=== PATIENT | male | born 1965 | race Caucasian/White ===

== ENCOUNTER → 2022-02-14 14:25 | Outpatient (CLI) | payer OTHER, SELFPAY ==
--- NOTE | ~2022-02-14 | US_ITS ---
EXAMINATION: US carotid duplex BI DATE: 02/14/2022 14:47 INDICATION: CVA TECHNIQUE: Grayscale, color Doppler, and pulsed Doppler images of the cervical carotid arteries were obtained. The degree of vessel stenosis is placed in one of the following categories: normal, <50%, 5 0-69%, >=70% but less than near-occlusion, near-occlusion, or total occlusion. Note that percent sten osis relative to normal distal artery lumen diameter is indirectly measured from velocity measurement s as described by Hamilton, et al. Radiology 2003; 229:340-346. Notes: Normal: Peak systolic velocity <125 centimeters/sec and no plaque <50%. Peak systolic velocity <125 ( EDV <40; ICA/CCA PSV ratio <2.0; used these factors only a tandem lesions or low cardiac output or co ntralateral disease) 50-69 %: PSV 125-230 (EDV 40-100; ratio 2-4) >= 70% but less than near occlusion: PSV greater than 230 (EDV > 100; ratio> 4.0) Near Occlusion: PSV that is variable; markedly narrowed lumen Occlusion: Absent flow on color/spectral Doppler and no lumen on yousif scale. COMPARISON: None. FINDINGS: RIGHT: The right common carotid artery (CCA) peak systolic velocity (PSV) is 108 cm/s. The right internal ca rotid artery (ICA) PSV is 47 cm/s. The right ICA end-diastolic velocity (EDV) is 7 cm/s. The right IC A/CCA PSV ratio is 0.5. The external carotid artery (ECA) PSV is 194 cm/s. There is antegrade flow in the right vertebral artery. LEFT: The left CCA PSV is 151 cm/s. The left ICA PSV is 100 cm/s. The left ICA EDV is 49 cm/s. The left ICA /CCA PSV ratio is 0.8. The ECA PSV is 123 cm/s. There is antegrade flow in the left vertebral artery . IMPRESSION: 1. Less than 50% stenosis in the right internal carotid artery by sonographic criteria. 2. Less than 50% stenosis in the left internal carotid artery by sonographic criteria. Reviewed, dictated and finalized at location B. IMPRESSION: 1. Less than 50% stenosis in the right internal carotid artery by sonographic juventino mcfarland. 2. Less than 50% stenosis in the left internal carotid artery by sonographic geraldine wan.
== END ==
PROVIDERS: PCP Family Medicine Adolescent Medicine; Visit Provider Family Medicine Adolescent Medicine
DX: H53.462 Homonymous bilateral field defects, left side (principal); I65.23 Occlusion and stenosis of bilateral carotid arteries
CPT/HCPCS: 93880

== ENCOUNTER 2023-09-02 14:45 | Outpatient (CLI) | payer OTHER, SELFPAY ==
--- NOTE | ~2023-09-02 | MR_ITS ---
EXAMINATION: MR lumbar spine wo con DATE: 09/02/2023 15:19 INDICATION: Low back pain. Left hip and leg pain. TECHNIQUE: Magnetic resonance imaging (MRI) of the lumbar spine was performed without intravenous con trast. Sequences included sagittal T2-weighted FSE, sagittal T2-weighted FS FSE, sagittal T1-weighted FSE, and axial T2-weighted FSE. COMPARISON: None FINDINGS: There is 5 degrees levocurvature of lumbar spine. There is mild chronic height loss of T11- L2 vertebral bodies. There is 3 mm retrolisthesis of L2 on L3. There is severely decreased disc heigh t at T10-T11, moderately decreased disc height at T11-T12, severely decreased disc height at T12-L1, L1-L2, and L2-L3, moderately decreased disc height at L3-L4 and L4-L5, and severely decreased disc he ight at L5-S1. The distal spinal cord signal intensity is normal. The conus medullaris is at L1-L2. T he following disc levels are specifically discussed: L1-L2: The disc is bulging. There is mild bilateral facet joint osteoarthritis. There is mild bilater al neural foraminal stenosis. There is mild central canal stenosis. L2-L3: The disc is bulging. There is mild bilateral facet joint osteoarthritis. There is moderate rig ht and mild left neural foraminal stenosis. There is mild central canal stenosis. L3-L4: The disc is bulging and has an annular fissure. There is moderate bilateral facet joint osteoa rthritis. There is moderate bilateral neural foraminal stenosis. There is mild central canal stenosis . L4-L5: The disc is bulging and has an annular fissure. There is severe bilateral facet joint osteoart hritis. There is moderate bilateral neural foraminal stenosis. There is mild central canal stenosis. L5-S1: The disc is bulging and has an annular fissure. There is severe bilateral facet joint osteoart hritis. There is moderate bilateral neural foraminal stenosis. There is mild central canal stenosis. IMPRESSION: 1. Severe lumbar spondylosis. Reviewed, dictated and finalized at location A.
== END 2023-09-02 14:46 ==
LOC: MICIMG 14:46
PROVIDERS: PCP Anesthesiology Pain Medicine; Visit Provider Anesthesiology Pain Medicine
DX: M54.50 Low back pain, unspecified (principal); G89.29 Other chronic pain; M47.896 Other spondylosis, lumbar region
CPT/HCPCS: 72148

== ENCOUNTER 2023-12-14 09:18 | Emergency (ER) | payer OTHER, SELFPAY ==
[2023-12-14 09:27] VITALS: BP 156/99; PULSE 102; RESP 16; TEMP 37; O2SAT 98
--- NOTE | 2023-12-14 10:13 | ED.GENADULT ---
HPI - General Adult General Chief complaint: Back Pain/Injury Stated complaint: lower back, left hip pain Source: patient Mode of arrival: ambulatory Limitations: no limitations History of Present Illness HPI narrative: Patient presents for evaluation of low back pain and left hip pain. He has a history of chronic pain in those areas for which he sees pain management. He has received injections in both areas. He has a history of bulging discs in the lumbar spinal region with spinal stenosis, and also arthritic changes in the left hip. Pain worsened in the last few days. No recent injury. He states pain is constant, sharp, 9/10 in severity. He has been taking Tylenol for his pain without considerable improvement thereafter. Pain is radiating from low back into LLE. Related Data Home Medications Medication Instructions Recorded Confirmed aspirin 81 mg tablet,delayed 81 mg PO DAILY 02/08/22 12/14/23 release atorvastatin 80 mg tablet 80 mg PO DAILY 07/07/23 07/07/23 bupropion HCl 150 mg 24 hr tablet, 300 mg PO DAILY 07/07/23 12/14/23 extended release Allergies Allergy/AdvReac Type Severity Reaction Status Date / Time lisinopril AdvReac Intermediate cough Verified 12/14/23 09:39 Review of Systems Review of Systems: CONSTITUTIONAL: Denies fever, chills, or sweats. EYES: Denies visual changes, redness, or discharge. ENT: Denies rhinorrhea, congestion, sore throat, or otalgia. CARDIOVASCULAR: Denies chest pain, palpitations, or edema. RESPIRATORY: Denies cough or dyspnea. GASTROINTESTINAL: Denies abdominal pain, nausea, vomiting, or diarrhea. GENITOURINARY: Denies dysuria or hematuria. SKIN: Denies rash or itching. MUSCULOSKELETAL: Reports low back pain and left hip pain. NEUROLOGIC: Denies headache, numbness, dizziness, or weakness. PSYCHIATRIC: Denies anxiety or depression. [facility] Past Medical History Medical History Anxiety Cough due to MERRY inhibitor Elbow tendonitis (~2020) Headache, migraine HTN (hypertension) Hyperlipemia Left elbow tendonitis Lumbar radiculopathy Stroke (cerebrum) Ulnar nerve entrapment Surgical History Surgical History (Updated 12/14/23 @ 10:17 by SEKOU Soto, ) H/O elbow surgery Family History Family History Father Family history non-contributory Social History Social History Smoking packs per day: 0.5 Smoking cigarettes per day: 10.0 Years smoked: 40 Smoking pack-years: 20.00 Smoking status: Current every day smoker Tobacco type: cigarettes Second hand tobacco smoke exposure: No Alcohol intake: current Drinks per week: 12 Alcohol use details: Beer and Wine Substance use: never Lack of Transportation: No Lack of Food: Never True Concerned About Future Housing: No Difficulty Paying Gas/Electric Bills: No Difficulty Paying for Meds: No Currently Unemployed: No Education: High School Diploma/GED Difficulty w/ Childcare or Family Care: No Exam Narrative: GENERAL: Well-appearing, well-nourished, and in no acute distress. HEAD: Normocephalic, atraumatic. EYES: PERRLA and EOMI. ENT: Nares clear, no rhinorrhea or epistaxis. Mucous membranes moist. Oropharynx without tonsillar hypertrophy exudate or other lesions. Bilateral TMs pearly yousif nonbulging NECK: Supple. No adenopathy or masses. No carotid bruits or JVD CHEST: Clear to auscultation. No respiratory distress. No wheezes rales or rhonchi HEART: Regular rate and rhythm. No murmur heard. Normal peripheral pulses. ABDOMEN: Soft, nontender, nondistended, normal active bowel sounds. EXTREMITIES: Normal range of motion. No edema. BACK: There is tenderness diffusely in lumbar spinal region SKIN: Warm, dry, no rash. NEURO: No focal deficits. Alert and oriented x3. PSYCH: N
== END 2023-12-14 10:15 | disposition home or self-care (01) ==
PROVIDERS: Emergency Provider Nurse Practitioner; PCP Family Medicine
DX: M54.16 Radiculopathy, lumbar region (principal); F17.210 Nicotine dependence, cigarettes, uncomplicated; I10 Essential (primary) hypertension; E78.5 Hyperlipidemia, unspecified; Z86.73 Personal history of transient ischemic attack (TIA), and cerebral infarction without residual deficits; F41.9 Anxiety disorder, unspecified; Z79.82 Long term (current) use of aspirin
CPT/HCPCS: 99213; G0463

== ENCOUNTER 2024-02-17 13:55 | Outpatient (CLI) | payer OTHER, SELFPAY ==
--- NOTE | ~2024-02-17 | MR_ITS ---
EXAMINATION: MR hip LT w con DATE: 02/17/2024 15:09 INDICATION: Left hip pain TECHNIQUE: Magnetic resonance (MR) arthrogram of the left hip was performed following intra-articular gadolinium contrast injection and without intravenous contrast. Details of the hip joint injection h ave been dictated separately. Sequences included small field of view of the left hip with axial and s agittal T1-weighted FS SE and T2-weighted FS FSE and coronal T1-weighted SE and T2-weighted FS FSE. Additional T1-weighted FGRE images in a radial pattern oriented orthogonal to the acetabular rim were obtained for evaluation of the labrum. COMPARISON: None. FINDINGS: Bones/labrum/cartilage: Alignment is normal. No fracture, avascular necrosis or pathologic marrow replacing process. Severe lower lumbar spondylosis with fibrovascular degenerative endplate changes at L4-L5 and L5-S1. Tear at the anterosuperior to superolateral left acetabular labrum with small partial-thickness chondral fis suring without degenerative subchondral changes along the adjacent superolateral margin of the left a cetabulum. There is additional nonuniform partial-thickness cartilage loss with smooth chondral surfa ce at the posterior border the aspect of the joint space. Fluid: Physiologic amount of fluid in the right hip. No evident loose osteochondral bodies or other filling defects within the contrast filled left hip joint space. No other abnormal fluid collections identifi ed. Soft tissues: Normal and symmetric muscle bulk and signal in the pelvis and visualized proximal thighs. The bilater al iliopsoas, gluteal and proximal hamstring tendons are normal. Mild prostatomegaly measuring 4.3 x 3.4 cm. Limited evaluation of visceral organs of the pelvis is otherwise unremarkable. Small fat-cont aining left inguinal hernia. No pathologically enlarged pelvic/inguinal lymphadenopathy. IMPRESSION: 1. Mild left hip osteoarthritis with tear of the anterosuperior to superolateral left acetabular labr um. 2. Severe lower lumbar spondylosis. 3. Small fat-containing left inguinal hernia. 4. Prostatomegaly. Reviewed, dictated and finalized at location A. IMPRESSION: 1. Mild left hip osteoarthritis with tear of the anterosuperior to superolatera l left acetabular labrum. 2. Severe lower lumbar spondylosis. 3. Small fat-containing left inguinal hernia. 4. Prostatomegaly.
--- NOTE | ~2024-02-17 | XR_ITS ---
EXAMINATION: XR fl inj hip LT for MR/CT DATE: 02/17/2024 14:28 INDICATION: Left hip pain. No prior surgery. TECHNIQUE: A time-out was performed to verify the patient's name, date of , and procedure to b e performed. The procedure including the risks, benefits, and alternatives was discussed with the pat ient. Risks discussed included bleeding and infection. The patient understood the risks and agreed to proceed. The skin overlying the left hip joint was prepped and draped in usual sterile fashion. Ane sthetic was administered with 1% lidocaine subcutaneously. A 22 G needle was advanced under fluorosc opic guidance into the joint. Subsequently, injectate consisting of 9 mL of 1:200 Multihance, 1:4 2% lidocaine, and 1:4 Omnipaque 350 was instilled. The needle was removed and the entry site was clean ed and dressed. There were no immediate complications. Fluoroscopy exposure time was 0.0 minutes. Th e total number of images was 3. FINDINGS: Real-time fluoroscopy demonstrates the needle and contrast in the left hip joint. IMPRESSION: 1. Successful left hip joint injection of contrast for subsequent MR arthrography. Reviewed, dictated and finalized at location B. IMPRESSION: 1. Successful left hip joint injection of contrast for subsequent MR arthrograp .
== END 2024-02-17 13:56 | disposition home or self-care (01) ==
LOC: MICIMG 13:56
PROVIDERS: PCP Family Medicine
DX: M16.12 Unilateral primary osteoarthritis, left hip (principal); S73.192A Other sprain of left hip, initial encounter; X58.XXXA Exposure to other specified factors, initial encounter; M47.816 Spondylosis without myelopathy or radiculopathy, lumbar region; K40.90 Unilateral inguinal hernia, without obstruction or gangrene, not specified as recurrent; N40.0 Benign prostatic hyperplasia without lower urinary tract symptoms
CPT/HCPCS: 20610; 73722; 77002; A9577; Q9967

== ENCOUNTER 2024-10-07 16:33 | Emergency (ER) | payer OTHER, SELFPAY ==
[2024-10-07 16:43] VITALS: BP 136/90; PULSE 95; RESP 16; TEMP 37; O2SAT 97
--- NOTE | 2024-10-07 17:22 | ED.SKABFB ---
HPI - Skin/Abscess/Foreign Bdy General Chief complaint: Skin/Abscess/Foreign Body Stated complaint: Right Under Eye Bump Source: patient Mode of arrival: ambulatory Limitations: no limitations History of Present Illness HPI narrative: Patient is a 59-year-old male who presents to the clinic with complaints of swelling to his cheek on the right side of his face. He states that he was sitting outside last night and may have been bit by an insect. He has taken 50mg of Benadryl this morning and another 50 mg of Benadryl around 1pm. He states that the swelling has not improved very much. He currently is still on Augmentin for a bronchitis infection and just stopped taking Prednisone yesterday. Denies any vision changes, shortness of breath, nausea, vomiting, fevers, or body aches. Related Data Home Medications ?Medication ?Instructions ?Recorded ?Confirmed ?Last Taken ?Type aspirin 81 mg tablet,delayed 81 mg PO DAILY 02/08/22 09/30/24 Unknown History release atorvastatin 80 mg tablet 80 mg PO DAILY 07/07/23 09/30/24 Unknown History bupropion HCl 150 mg 24 hr tablet, 300 mg PO DAILY 07/07/23 09/30/24 Unknown History extended release Allergies Allergy/AdvReac Type Severity Reaction Status Date / Time lisinopril AdvReac Intermediate cough Verified 10/07/24 16:45 Review of Systems Review of Systems: CONSTITUTIONAL: Denies body aches, fever, chills, or sweats. EYES: Denies visual changes, redness, or discharge. ENT: Denies rhinorrhea, congestion CARDIOVASCULAR: Denies chest pain, palpitations, or edema. RESPIRATORY: Denies cough or dyspnea. GASTROINTESTINAL: Denies abdominal pain, nausea, vomiting, or diarrhea. SKIN: ?Reports swelling to his right cheek. MUSCULOSKELETAL: Denies back pain, joint pain, or myalgia. NEUROLOGIC: Denies headache, numbness, tingling, or weakness. All systems reviewed & are unremarkable except as noted in HPI and below [facility] Past Medical History Medical History Lumbar radiculopathy Cough due to MERRY inhibitor Ulnar nerve entrapment Elbow tendonitis (~2020) Left elbow tendonitis Stroke (cerebrum) HTN (hypertension) Hyperlipemia Headache, migraine Anxiety Surgical History Surgical History H/O elbow surgery Family History Family History Father Family history non-contributory Mother Cerebrovascular accident Social History Social History Smoking packs per day: 0.5 Smoking cigarettes per day: 10.0 Years smoked: 40 Smoking pack-years: 20.00 Smoking status: Current every day smoker Tobacco type: cigarettes Second hand tobacco smoke exposure: No Alcohol intake: current Drinks per week: 12 Alcohol use details: Beer and Wine Substance use: never Lack of Transportation: No Lack of Food: Never True Concerned About Future Housing: No Difficulty Paying Gas/Electric Bills: No Difficulty Paying for Meds: No Currently Unemployed: No Education: High School Diploma/GED Difficulty w/ Childcare or Family Care: No Comments At time of signature, I have reviewed and agree with nursing past medical, surgical, social and family history unless otherwise noted. Please see nursing chart for further information. There is no relevant family history pertinent to the presenting complaint. Exam Narrative: GENERAL: Well-appearing HEAD: Normocephalic, atraumatic. EYES: ?conjunctivae clear, and EOMI. No periorbital edema or erythema. ENT: Mucous membranes moist. Oropharynx without edema, erythema or lesions. NECK: Supple. No lymphadenopathy CHEST: Clear to auscultation. HEART: Regular rate and rhythm. SKIN: Warm, dry. 4 cm area of edema noted to upper left cheek. Pinpoint erythemic to center c/w insect bite. NEURO: ?Alert and oriented x3.? Course Course Level of Care: Express Care Visit Vital Signs Vital signs: Vital Signs Temperature 98.6 F 10/07/24 16:43 Pulse Rate 95 10/07/24 16:43 Respiratory Rate 16 10/07/24 16:43 Blood Pressure 136/90 10/07/24 16:43 Pulse Oximetry 97 10/07/24 16:43 Oxygen Delivery Room Air 10/07/24 16:43 Temperature 98.6 F 10/07/24 16:43 Pulse Rate 95 10/07/24 16:43 Respiratory Rate 16 10/07/24 16:43 Blood Pressure 136/90 10/07/24 16:43 Pulse Oximetry 97 10/07/24 16:43 Oxygen Delivery Room Air 10/07/24 16:43 Reviewed MDM - Skin/Abscess/Foreign Bdy MDM Narrative Medical decision making narrative: Discussed physical exam findings. Triamcinolone prescription given. Advised supportive measures and signs/symptoms to go to the ER. Pt is appropriate for outpatient treatment and follow up. Differential Diagnosis Differential diagnosis: Likely insect bites, contact dermatitis and other (allergic reaction) Critical Care Time Critical Care Time Critical Care Time: No Discharge Plan Discharge Clinical Impression: Cheek swelling, Insect bite Patient Disposition: Home Condition: Stable Instructions: Insect Bite or Sting (ED) Additional Instructions: Use triamcinolone cream as prescribed. Do NOT exceed 7 days of use. Recommend Zyrtec (or Claritin/Tish) daily for 7 days. Clean with soap and water only; Avoid using alcohol and peroxide Apply ice to area 15 minutes on 15 minutes off Please schedule a follow up visit with your personal physician for further evaluation and treatment within 3-5days OR if your symptoms persist, change or worsen significantly before you can contact your personal physician then please, without delay, go to the emergency department for further evaluation. If you experience any worsening redness, swelling, streaking (red lines), fever or chills please go to the ER. Patient Language: Vietnamese Prescriptions: New triamcinolone acetonide 0.1 % cream 1 applic topical BID Qty: 30 0RF No Action hydrocodone-acetaminophen 5-325 mg tablet 1 - 2 tablet PO Q8H PRN (Reason: pain) Qty: 15 0RF atorvastatin 80 mg tablet 80 mg PO DAILY bupropion HCl 150 mg tablet extended release 24 hr 300 mg PO DAILY cyclobenzaprine 10 mg tablet 10 mg PO TID PRN (Reason: muscle spasm) Qty: 90 1RF aspirin 81 mg tablet,delayed release (DR/EC) 81 mg PO DAILY gabapentin 300 mg capsule 300 mg PO BID Qty: 60 0RF amoxicillin-pot clavulanate 875-125 mg tablet 1 tablet PO BID Qty: 20 0RF benzonatate 200 mg capsule 200 mg PO TID Qty: 30 0RF prednisone 50 mg tablet 50 mg PO DAILY Qty: 5 0RF irbesartan 300 mg tablet 300 mg PO DAILY Qty: 30 0RF Rx Instructions: LAST REFILL UNTIL SEEN naproxen [Naprosyn] 500 mg tablet 500 mg PO BID Qty: 60 0RF Rx Instructions: LAST REFILL UNTIL SEEN Follow-up/Referrals: Ronny Agosto MD [Primary Care Provider] - Time of Disposition: 17:39
== END 2024-10-07 17:48 | disposition home or self-care (01) ==
PROVIDERS: PCP Family Medicine
DX: S00.86XA Insect bite (nonvenomous) of other part of head, initial encounter (principal); W57.XXXA Bitten or stung by nonvenomous insect and other nonvenomous arthropods, initial encounter; F17.210 Nicotine dependence, cigarettes, uncomplicated; I10 Essential (primary) hypertension; E78.5 Hyperlipidemia, unspecified; F41.9 Anxiety disorder, unspecified; Z79.82 Long term (current) use of aspirin; Z86.73 Personal history of transient ischemic attack (TIA), and cerebral infarction without residual deficits
CPT/HCPCS: 99213; G0463